=== PATIENT | female | born 1945 | race Two or more races ===

== ENCOUNTER 2018-07-06 09:05 | Inpatient (IN) ==
[2018-07-06 10:11] LABS: Basophils # 0.1 10*3/uL (0.0-0.2); Basophils % 0.2 % (0.0-0.8); Hematocrit 37.4 VOL% (35.7-47.0); Hemoglobin 11.8 GM/DL (12.0-16.0); Immature Granulocytes Absolute 0.27 #; Lymphocytes # 1.2 10*3/uL (1.4-4.0); Lymphocytes % 4.5 % (21.3-54.2); Mean Corpuscular HGB Conc 31.6 GM/DL (32-36); Mean Corpuscular Hemoglobin 29 PG (27-34); Mean Corpuscular Volume 91.9 FL (87-102); Mean Platelet Volume 11.5 FL (9.6-12.0); Monocytes # 1.6 10*3/uL (0.11-0.8); Monocytes % 5.8 % (1.7-12.7); Neutrophils # 23.6 10*3/uL (1.4-7.4); Neutrophils % 88.5 % (38.7-73.9); Platelet Count 209 T/CUMM (130-400); Red Blood Count 4.07 MC/CUMM (3.8-5.5); Red Cell Distribution Width 13.9 % (9.3-17.3); White Blood Count 26.7 T/CUMM (4-12)
[2018-07-06 10:31] LABS: Band Neutrophils 3 % (0-10); Hypochromasia 1+; Lymphocytes 5 % (20-55); Platelet Estimate Adequate; Segmented Neutrophils 86 % (50-85); Total Cells Counted 100
[2018-07-06] MEDS ORDERED: LEVOFLOXACIN INJ 500 MG in PREMIX 1 EACH IV STA (10:36)
[2018-07-06] MEDS ORDERED: ALBUTEROL 2.5 MG/3 ML NEB RESP TX PRN (10:45)
[2018-07-06] MEDS ORDERED: diphenhydrAMINE CAP 25 MG CAPSULE PO PRN (10:48)
[2018-07-06] MEDS ORDERED: traZODone 50 MG TABLET PO PRN (10:48)
[2018-07-06] MEDS ORDERED: ACETAMINOPHEN 325 MG TABLET PO PRN (10:48)
[2018-07-06] MEDS ORDERED: ZALEPLON 5 MG CAPSULE PO PRN (10:48)
[2018-07-06] MEDS ORDERED: LACTULOSE 20 GM/30 ML UDCUP PO PRN (10:48)
[2018-07-06] MEDS ORDERED: DEXTROSE 50% 25 GM/50 ML VIAL IV PRN (10:48)
[2018-07-06] MEDS ORDERED: MORPHINE 4 MG/1 ML VIAL IV PRN (10:48)
[2018-07-06] MEDS ORDERED: GLUCAGON 1 MG VIAL IM PRN (10:48)
[2018-07-06] MEDS ORDERED: ONDANSETRON 4 MG/2 ML VIAL IV PRN (10:48)
[2018-07-06] MEDS ORDERED: PROMETHAZINE 25 MG/1 ML VIAL IM PRN (10:48)
[2018-07-06] MEDS ORDERED: busPIRone 5 MG TABLET PO PRN (10:53)
[2018-07-06] MEDS ORDERED: cefTRIAXone 1,000 MG in SYRINGE 1 EACH IV SCH (11:00)
[2018-07-06 11:01] LABS: Albumin 3.4 G/DL (3.4-5.0); Bilirubin,Total 0.5 MG/DL (0.2-1.0); Calcium 9.5 MG/DL (8.5-10.1); Osmolality,Calculated 276.1 MOS/KG (273-304); Potassium 4.4 MMOL/L (3.5-5.1)
[2018-07-06 11:31] LABS: Risk Ratio 2.83; VLDL CHOLESTEROL 20.4 MG/DL
[2018-07-06] MEDS: INSULIN LISPRO 100 UNIT/ML SUBCUT SCH ×3 (12:27→22:40)
[2018-07-06] MEDS: HEPARIN 5,000 UNIT/1 ML VIAL SUBCUT SCH ×2 (12:29→22:30)
[2018-07-06] MEDS: methylPREDNISolone SOD SUC 40 MG/1 ML VIAL IV SCH ×3 (12:30→23:06)
[2018-07-06] MEDS: ALBUTEROL/IPRATROPIUM 3 ML NEB RESP TX SCH ×2 (14:44→20:08)
[2018-07-06] MEDS: cefTRIAXone 2,000 MG in SODIUM CHLORIDE 0.9% 100 ML IV SCH (14:54)
[2018-07-06] MEDS ORDERED: GABAPENTIN 600 MG TABLET PO SCH (15:00)
[2018-07-06] MEDS ORDERED: SODIUM CHLORIDE 0.9% 1,000 ML IV SCH (16:00)
[2018-07-06 17:41] LABS: Troponin I < 0.015 NG/ML (0.00-0.045)
[2018-07-06 19:22] LABS: Apearance,Urine CLEAR (Clear); Bilirubin,Urine Negative (Negative); Blood, Urine Negative (Negative); Glucose,Urine (UA) Negative (Negative); Ketones,Urine Negative (Negative); Mucus,Urine Occasional /LPF (Occasional); Nitrite,Urine Negative (Negative); Protein,Urine Negative; RBC,Urine 2 /HPF (0-4); Squamous Epithelial Cell,Urine Occasional /HPF (0-10); Urine Color Yellow (Yellow); Urine Specific Gravity 1.012 (1.001-1.035); Urine Urobilinogen < 2.0 EU/DL (0.2-1.0); WBC,Urine 5 /HPF (0-6)
[2018-07-06 20:14] LABS: Troponin I < 0.015 NG/ML (0.00-0.045)
[2018-07-06] MEDS: guaiFENesin/DM ER 600-30 MG TABLET PO SCH (20:38)
[2018-07-06 22:37] LABS: Troponin I < 0.015 NG/ML (0.00-0.045)
[2018-07-07] MEDS: ALBUTEROL/IPRATROPIUM 3 ML NEB RESP TX SCH ×4 (01:10→19:32)
[2018-07-07] MEDS: HEPARIN 5,000 UNIT/1 ML VIAL SUBCUT SCH ×3 (05:22→20:54)
[2018-07-07] MEDS: methylPREDNISolone SOD SUC 40 MG/1 ML VIAL IV SCH ×4 (05:22→22:38)
[2018-07-07 06:08] LABS: Basophils # 0.1 10*3/uL (0.0-0.2); Basophils % 0.2 % (0.0-0.8); Hematocrit 34.4 VOL% (35.7-47.0); Hemoglobin 10.8 GM/DL (12.0-16.0); Immature Granulocytes % 1.2 %; Immature Granulocytes Absolute 0.33 #; Lymphocytes # 0.9 10*3/uL (1.4-4.0); Lymphocytes % 3.5 % (21.3-54.2); Mean Corpuscular HGB Conc 31.4 GM/DL (32-36); Mean Corpuscular Hemoglobin 28 PG (27-34); Mean Corpuscular Volume 90.3 FL (87-102); Mean Platelet Volume 11.9 FL (9.6-12.0); Monocytes # 0.6 10*3/uL (0.11-0.8); Monocytes % 2.2 % (1.7-12.7); Neutrophils # 25.3 10*3/uL (1.4-7.4); Neutrophils % 92.9 % (38.7-73.9); Platelet Count 187 T/CUMM (130-400); Red Blood Count 3.81 MC/CUMM (3.8-5.5); Red Cell Distribution Width 13.4 % (9.3-17.3); White Blood Count 27.2 T/CUMM (4-12)
[2018-07-07 06:37] LABS: Hypochromasia 1+; Lymphocytes 4 % (20-55); Ovalocytes Slight; Platelet Estimate Adequate; Segmented Neutrophils 95 % (50-85); Total Cells Counted 100
[2018-07-07 06:42] LABS: Bilirubin,Total 0.6 MG/DL (0.2-1.0); Calcium 8.9 MG/DL (8.5-10.1); Osmolality,Calculated 287.7 MOS/KG (273-304); Potassium 3.7 MMOL/L (3.5-5.1); Total Protein 7.4 G/DL (6.4-8.3)
[2018-07-07] MEDS: ASPIRIN EC 81 MG TABLET PO SCH (08:32)
[2018-07-07] MEDS: guaiFENesin/DM ER 600-30 MG TABLET PO SCH ×2 (08:32→20:54)
[2018-07-07] MEDS: METOPROLOL SUCCINATE XL 100 MG TABLET PO SCH (08:32)
[2018-07-07] MEDS: sitaGLIPtin 25 MG TABLET PO SCH (08:32)
[2018-07-07] MEDS: PANTOPRAZOLE 40 MG TABLET PO SCH (08:32)
[2018-07-07] MEDS: CITALOPRAM 20 MG TABLET PO SCH (08:33)
[2018-07-07] MEDS: INSULIN LISPRO 100 UNIT/ML SUBCUT SCH ×4 (08:42→20:54)
[2018-07-07] MEDS ORDERED: POTASSIUM CHLORIDE 10 MEQ TABLET PO SCH (09:00)
[2018-07-07] MEDS ORDERED: amLODIPine 10 MG TABLET PO SCH (09:00)
[2018-07-07] MEDS ORDERED: EXEMESTANE 25 MG TABLET PO SCH (09:00)
[2018-07-07] MEDS ORDERED: POTASSIUM CHLORIDE 20 MEQ TABLET PO ONE (11:54)
[2018-07-07] MEDS: POTASSIUM CHLORIDE 20 MEQ TABLET PO SCH (12:53)
[2018-07-07] MEDS: cefTRIAXone 2,000 MG in SODIUM CHLORIDE 0.9% 100 ML IV SCH (13:31)
[2018-07-07] MEDS ORDERED: MAGNESIUM HYDROXIDE SUSP 30 ML UDCUP PO ONE (14:04)
[2018-07-07] MEDS ORDERED: BISACODYL 5 MG TABLET PO ONE (14:05)
[2018-07-07] MEDS ORDERED: MAGNESIUM HYDROXIDE SUSP 30 ML UDCUP PO PRN (14:05)
[2018-07-07] MEDS: SIMVASTATIN 20 MG TABLET PO SCH (20:53)
[2018-07-08] MEDS: ALBUTEROL/IPRATROPIUM 3 ML NEB RESP TX SCH ×4 (00:52→21:16)
[2018-07-08] MEDS: methylPREDNISolone SOD SUC 40 MG/1 ML VIAL IV SCH ×3 (05:19→16:52)
[2018-07-08] MEDS: HEPARIN 5,000 UNIT/1 ML VIAL SUBCUT SCH ×3 (05:19→21:32)
[2018-07-08 05:55] LABS: Basophils # 0.1 10*3/uL (0.0-0.2); Basophils % 0.2 % (0.0-0.8); Hemoglobin 11.4 GM/DL (12.0-16.0); Immature Granulocytes % 2.5 %; Immature Granulocytes Absolute 0.78 #; Lymphocytes # 0.7 10*3/uL (1.4-4.0); Lymphocytes % 2.2 % (21.3-54.2); Mean Corpuscular HGB Conc 31.7 GM/DL (32-36); Mean Corpuscular Hemoglobin 28 PG (27-34); Mean Corpuscular Volume 89.8 FL (87-102); Mean Platelet Volume 11.6 FL (9.6-12.0); Monocytes # 0.7 10*3/uL (0.11-0.8); Monocytes % 2.1 % (1.7-12.7); Neutrophils # 29.5 10*3/uL (1.4-7.4); Platelet Count 212 T/CUMM (130-400); Red Blood Count 4.01 MC/CUMM (3.8-5.5); Red Cell Distribution Width 13.6 % (9.3-17.3); White Blood Count 31.7 T/CUMM (4-12)
[2018-07-08 06:13] LABS: Albumin 2.9 G/DL (3.4-5.0); Bilirubin,Total 0.4 MG/DL (0.2-1.0); Calcium 9.3 MG/DL (8.5-10.1); Osmolality,Calculated 292.5 MOS/KG (273-304); Potassium 4.7 MMOL/L (3.5-5.1); Total Protein 7.5 G/DL (6.4-8.3)
[2018-07-08 06:33] LABS: Band Neutrophils 1 % (0-10); Hypochromasia 1+; Lymphocytes 1 % (20-55); Microcytosis Slight; Segmented Neutrophils 97 % (50-85); Total Cells Counted 100
[2018-07-08 06:34] LABS: Platelet Estimate Normal
[2018-07-08] MEDS: PANTOPRAZOLE 40 MG TABLET PO SCH (09:37)
[2018-07-08] MEDS: sitaGLIPtin 25 MG TABLET PO SCH (09:37)
[2018-07-08] MEDS: CITALOPRAM 20 MG TABLET PO SCH (09:37)
[2018-07-08] MEDS: POTASSIUM CHLORIDE 20 MEQ TABLET PO SCH (09:37)
[2018-07-08] MEDS: ASPIRIN EC 81 MG TABLET PO SCH (09:37)
[2018-07-08] MEDS: guaiFENesin/DM ER 600-30 MG TABLET PO SCH ×2 (09:37→21:32)
[2018-07-08] MEDS: METOPROLOL SUCCINATE XL 100 MG TABLET PO SCH (09:37)
[2018-07-08] MEDS ORDERED: LEVOFLOXACIN INJ 500 MG in PREMIX 1 EACH IV SCH (11:00)
[2018-07-08] MEDS: INSULIN LISPRO 100 UNIT/ML SUBCUT SCH ×4 (11:35→21:56)
[2018-07-08] MEDS: cefTRIAXone 2,000 MG in SODIUM CHLORIDE 0.9% 100 ML IV SCH (16:51)
[2018-07-08] MEDS: SIMVASTATIN 20 MG TABLET PO SCH (21:32)
[2018-07-09] MEDS: methylPREDNISolone SOD SUC 40 MG/1 ML VIAL IV SCH ×3 (00:18→12:50)
[2018-07-09] MEDS: ALBUTEROL/IPRATROPIUM 3 ML NEB RESP TX SCH ×3 (01:09→13:48)
[2018-07-09] MEDS: HEPARIN 5,000 UNIT/1 ML VIAL SUBCUT SCH ×2 (03:25→12:50)
[2018-07-09] MEDS: INSULIN LISPRO 100 UNIT/ML SUBCUT SCH ×2 (09:50→12:51)
[2018-07-09] MEDS: ASPIRIN EC 81 MG TABLET PO SCH (09:51)
[2018-07-09] MEDS: PANTOPRAZOLE 40 MG TABLET PO SCH (09:51)
[2018-07-09] MEDS: POTASSIUM CHLORIDE 20 MEQ TABLET PO SCH (09:51)
[2018-07-09] MEDS: CITALOPRAM 20 MG TABLET PO SCH (09:51)
[2018-07-09] MEDS: sitaGLIPtin 25 MG TABLET PO SCH (09:51)
[2018-07-09] MEDS: guaiFENesin/DM ER 600-30 MG TABLET PO SCH (09:51)
[2018-07-09] MEDS: METOPROLOL SUCCINATE XL 100 MG TABLET PO SCH (09:51)
[2018-07-09 12:07] VITALS: BP 151/78
[2018-07-09] MEDS: cefTRIAXone 2,000 MG in SODIUM CHLORIDE 0.9% 100 ML IV SCH (15:14)
== END 2018-07-09 15:27 | disposition home health service (06) | DRG 871 ==
LOC: EDUNIT# → EDBD → N.ED 09:05 → N.EDINP 10:34 → N.5E 11:57
PROVIDERS: ADMIT Hospitalist; ATTEND Hospitalist

== ENCOUNTER 2018-09-14 09:37 | Inpatient (IN) ==
[2018-09-14 10:43] LABS: Basophils % 0.4 % (0.0-0.8); Eosinophils % 0.4 % (0.00-10.9); Hematocrit 40.9 VOL% (35.7-47.0); Hemoglobin 12.9 GM/DL (12.0-16.0); Immature Granulocytes % 0.8 %; Immature Granulocytes Absolute 0.09 #; Lymphocytes # 0.9 10*3/uL (1.4-4.0); Lymphocytes % 8.2 % (21.3-54.2); Mean Corpuscular HGB Conc 31.5 GM/DL (32-36); Mean Corpuscular Volume 88.3 FL (87-102); Mean Platelet Volume 10.9 FL (9.6-12.0); Monocytes % 4.4 % (1.7-12.7); Neutrophils % 85.8 % (38.7-73.9); Platelet Count 230 T/CUMM (130-400); Red Blood Count 4.63 MC/CUMM (3.8-5.5); Red Cell Distribution Width 14.5 % (9.3-17.3); White Blood Count 10.7 T/CUMM (4-12)
[2018-09-14 10:51] LABS: INR 1.2; PT Patient Result 13.5 SECS
[2018-09-14] MEDS ORDERED: ASPIRIN 325 MG TABLET PO STA (10:52)
[2018-09-14] MEDS ORDERED: ENOXAPARIN 80 MG/0.8 ML SYRINGE SUBCUT STA (10:52)
[2018-09-14 11:02] LABS: Partial Thromboplastin Time 58.2 SECS (0-40)
[2018-09-14 11:04] LABS: Albumin 3.9 G/DL (3.4-5.0); Bilirubin,Total 0.6 MG/DL (0.2-1.0); Calcium 9.8 MG/DL (8.5-10.1); Osmolality,Calculated 278.7 MOS/KG (273-304); Total Protein 7.9 G/DL (6.4-8.3)
[2018-09-14] MEDS ORDERED: LEVOFLOXACIN INJ 500 MG in PREMIX 1 EACH IV STA (11:18)
[2018-09-14] MEDS ORDERED: DOCUSATE SODIUM 100 MG CAPSULE PO PRN (13:36)
[2018-09-14] MEDS ORDERED: ACETAMINOPHEN 325 MG TABLET PO PRN (13:36)
[2018-09-14] MEDS ORDERED: DEXTROSE 50% 25 GM/50 ML SYRINGE IV PRN (13:51)
[2018-09-14] MEDS ORDERED: GLUCAGON 1 MG VIAL IM PRN (13:51)
[2018-09-14] MEDS ORDERED: ASPIRIN EC 81 MG TABLET PO SCH (14:00)
[2018-09-14] MEDS ORDERED: ENOXAPARIN 40 MG/0.4 ML SYRINGE SUBCUT SCH (14:00)
[2018-09-14] MEDS: FUROSEMIDE 40 MG TABLET PO SCH (16:35)
[2018-09-14] MEDS: CITALOPRAM 20 MG TABLET PO SCH (16:35)
[2018-09-14] MEDS: SPIRONOLACTONE 25 MG TABLET PO SCH (16:35)
[2018-09-14] MEDS: busPIRone 5 MG TABLET PO SCH ×2 (16:35→20:48)
[2018-09-14] MEDS: PANTOPRAZOLE 40 MG TABLET PO SCH (16:35)
[2018-09-14] MEDS: DILTIAZEM 60 MG TABLET PO SCH ×2 (16:36→20:48)
[2018-09-14] MEDS: LOSARTAN 50 MG TABLET PO SCH (16:36)
[2018-09-14] MEDS: INSULIN LISPRO 100 UNIT/ML SUBCUT SCH ×2 (18:27→22:03)
[2018-09-14] MEDS: SIMVASTATIN 20 MG TABLET PO SCH (20:47)
[2018-09-14] MEDS: ZALEPLON 5 MG CAPSULE PO PRN (20:51)
[2018-09-15 04:46] LABS: Basophils % 0.3 % (0.0-0.8); Eosinophils # 0.1 10*3/uL (0.0-0.87); Eosinophils % 1.3 % (0.00-10.9); Hematocrit 38.9 VOL% (35.7-47.0); Hemoglobin 12.2 GM/DL (12.0-16.0); Immature Granulocytes Absolute 0.09 #; Lymphocytes # 1.2 10*3/uL (1.4-4.0); Lymphocytes % 13.8 % (21.3-54.2); Mean Corpuscular HGB Conc 31.4 GM/DL (32-36); Mean Corpuscular Volume 88.6 FL (87-102); Mean Platelet Volume 11.2 FL (9.6-12.0); Monocytes % 9.9 % (1.7-12.7); Neutrophils % 73.7 % (38.7-73.9); Platelet Count 222 T/CUMM (130-400); Red Blood Count 4.39 MC/CUMM (3.8-5.5); Red Cell Distribution Width 14.6 % (9.3-17.3); White Blood Count 8.7 T/CUMM (4-12)
[2018-09-15 05:05] LABS: Calcium 9.2 MG/DL (8.5-10.1); Osmolality,Calculated 281.7 MOS/KG (273-304)
[2018-09-15] MEDS: LOSARTAN 50 MG TABLET PO SCH (08:12)
[2018-09-15] MEDS: busPIRone 5 MG TABLET PO SCH ×2 (08:12→20:55)
[2018-09-15] MEDS: CITALOPRAM 20 MG TABLET PO SCH (08:12)
[2018-09-15] MEDS: SPIRONOLACTONE 25 MG TABLET PO SCH (08:12)
[2018-09-15] MEDS: DILTIAZEM 60 MG TABLET PO SCH ×3 (08:12→20:55)
[2018-09-15] MEDS: ASPIRIN EC 81 MG TABLET PO SCH (08:12)
[2018-09-15] MEDS: FUROSEMIDE 40 MG TABLET PO SCH (08:12)
[2018-09-15] MEDS: PANTOPRAZOLE 40 MG TABLET PO SCH (08:13)
[2018-09-15] MEDS: DABIGATRAN 75 MG CAPSULE PO SCH ×2 (08:14→20:53)
[2018-09-15] MEDS: INSULIN GLARGINE 100 UNIT/ML SUBCUT SCH (08:14)
[2018-09-15] MEDS: INSULIN LISPRO 100 UNIT/ML SUBCUT SCH ×4 (10:31→21:38)
[2018-09-15] MEDS: LEVOFLOXACIN INJ 250 MG in PREMIX 1 EACH IV SCH (11:37)
[2018-09-15] MEDS ORDERED: NITROGLYCERIN SL 0.4 MG TABLET SL ONE (13:01)
[2018-09-15] MEDS ORDERED: ASPIRIN CHEW 81 MG TABLET PO ONE ×2 (13:01→13:04)
[2018-09-15] MEDS ORDERED: NITROGLYCERIN SL 0.4 MG TABLET SL PRN (13:04)
[2018-09-15] MEDS ORDERED: MORPHINE 4 MG/1 ML VIAL IM PRN (13:26)
[2018-09-15 13:38] LABS: Basophils % 0.4 % (0.0-0.8); Eosinophils # 0.1 10*3/uL (0.0-0.87); Eosinophils % 0.9 % (0.00-10.9); Hematocrit 43.5 VOL% (35.7-47.0); Hemoglobin 13.3 GM/DL (12.0-16.0); Immature Granulocytes % 0.9 %; Immature Granulocytes Absolute 0.07 #; Lymphocytes # 1.1 10*3/uL (1.4-4.0); Lymphocytes % 13.3 % (21.3-54.2); Mean Corpuscular HGB Conc 30.6 GM/DL (32-36); Mean Platelet Volume 11.7 FL (9.6-12.0); Monocytes % 6.8 % (1.7-12.7); Neutrophils % 77.7 % (38.7-73.9); Platelet Count 212 T/CUMM (130-400); Red Blood Count 4.78 MC/CUMM (3.8-5.5); Red Cell Distribution Width 14.6 % (9.3-17.3); White Blood Count 8.2 T/CUMM (4-12)
[2018-09-15] MEDS ORDERED: ENOXAPARIN 40 MG/0.4 ML SYRINGE SUBCUT SCH (14:00)
[2018-09-15 14:06] LABS: Albumin 4.2 G/DL (3.4-5.0); Bilirubin,Total 0.5 MG/DL (0.2-1.0); Calcium 9.5 MG/DL (8.5-10.1); Total Protein 7.7 G/DL (6.4-8.3)
[2018-09-15] MEDS: BISACODYL 5 MG TABLET PO PRN (14:43)
[2018-09-15] MEDS: ONDANSETRON 4 MG/2 ML VIAL IV PRN ×2 (16:59→22:48)
[2018-09-15] MEDS: SIMVASTATIN 20 MG TABLET PO SCH (21:33)
[2018-09-16] MEDS: BISACODYL 5 MG TABLET PO PRN (06:55)
[2018-09-16] MEDS: INSULIN LISPRO 100 UNIT/ML SUBCUT SCH ×4 (08:28→20:58)
[2018-09-16] MEDS: DILTIAZEM 60 MG TABLET PO SCH ×3 (09:33→20:57)
[2018-09-16] MEDS: CITALOPRAM 20 MG TABLET PO SCH (09:33)
[2018-09-16] MEDS: SPIRONOLACTONE 25 MG TABLET PO SCH (09:34)
[2018-09-16] MEDS: DABIGATRAN 75 MG CAPSULE PO SCH ×2 (09:34→20:59)
[2018-09-16] MEDS: busPIRone 5 MG TABLET PO SCH ×2 (09:34→20:55)
[2018-09-16] MEDS: ASPIRIN EC 81 MG TABLET PO SCH (09:34)
[2018-09-16] MEDS: LOSARTAN 50 MG TABLET PO SCH (09:34)
[2018-09-16] MEDS: FUROSEMIDE 40 MG TABLET PO SCH (09:34)
[2018-09-16] MEDS: PANTOPRAZOLE 40 MG TABLET PO SCH (09:34)
[2018-09-16] MEDS: INSULIN GLARGINE 100 UNIT/ML SUBCUT SCH (09:39)
[2018-09-16] MEDS ORDERED: MAGNESIUM HYDROXIDE SUSP 30 ML UDCUP PO PRN (10:54)
[2018-09-16] MEDS: LEVOFLOXACIN INJ 250 MG in PREMIX 1 EACH IV SCH (12:21)
[2018-09-16] MEDS ORDERED: PHENOL 1.4% THROAT SPRAY 177 ML BOTTLE PO PRN (16:26)
[2018-09-16] MEDS: SIMVASTATIN 20 MG TABLET PO SCH (20:55)
[2018-09-16] MEDS: ZALEPLON 5 MG CAPSULE PO PRN (20:56)
[2018-09-17 05:50] LABS: Basophils % 0.4 % (0.0-0.8); Eosinophils # 0.2 10*3/uL (0.0-0.87); Eosinophils % 1.7 % (0.00-10.9); Hematocrit 40.3 VOL% (35.7-47.0); Hemoglobin 12.5 GM/DL (12.0-16.0); Immature Granulocytes % 1.1 %; Immature Granulocytes Absolute 0.11 #; Lymphocytes # 0.9 10*3/uL (1.4-4.0); Lymphocytes % 9.1 % (21.3-54.2); Mean Corpuscular Volume 89.6 FL (87-102); Mean Platelet Volume 11.4 FL (9.6-12.0); Monocytes % 7.7 % (1.7-12.7); Platelet Count 203 T/CUMM (130-400); Red Cell Distribution Width 14.7 % (9.3-17.3)
[2018-09-17 06:34] LABS: Calcium 9.2 MG/DL (8.5-10.1)
[2018-09-17] MEDS: INSULIN LISPRO 100 UNIT/ML SUBCUT SCH ×4 (07:57→20:51)
[2018-09-17] MEDS: DILTIAZEM 60 MG TABLET PO SCH ×3 (09:00→20:49)
[2018-09-17] MEDS: SODIUM CHLORIDE 0.9% 1,000 ML IV SCH ×2 (09:00→17:08)
[2018-09-17] MEDS: busPIRone 5 MG TABLET PO SCH ×2 (09:00→20:49)
[2018-09-17] MEDS: CITALOPRAM 20 MG TABLET PO SCH (09:01)
[2018-09-17] MEDS: LOSARTAN 50 MG TABLET PO SCH (09:01)
[2018-09-17] MEDS: PANTOPRAZOLE 40 MG TABLET PO SCH (09:01)
[2018-09-17] MEDS: ASPIRIN EC 81 MG TABLET PO SCH (09:02)
[2018-09-17] MEDS: DABIGATRAN 75 MG CAPSULE PO SCH ×2 (09:23→20:55)
[2018-09-17] MEDS: INSULIN GLARGINE 100 UNIT/ML SUBCUT SCH (09:23)
[2018-09-17 09:38] LABS: Apearance,Urine CLEAR (Clear); Bilirubin,Urine Negative (Negative); Blood, Urine Negative (Negative); Glucose,Urine (UA) Negative (Negative); Hyaline Casts,Urine 5 /LPF (0-3); Ketones,Urine Negative (Negative); Mucus,Urine Occasional /LPF (Occasional); Nitrite,Urine Negative (Negative); Protein,Urine Negative; RBC,Urine 1 /HPF (0-4); Squamous Epithelial Cell,Urine Occasional /HPF (0-10); Urine Color Yellow (Yellow); Urine Specific Gravity 1.019 (1.001-1.035); Urine Urobilinogen < 2.0 EU/DL (0.2-1.0); WBC,Urine 8 /HPF (0-6)
[2018-09-17 10:05] LABS: Protein/Creatinine Ratio,Urine 0.1 RATIO
[2018-09-17] MEDS: LEVOFLOXACIN INJ 250 MG in PREMIX 1 EACH IV SCH (11:16)
[2018-09-17] MEDS: ZALEPLON 5 MG CAPSULE PO PRN (20:49)
[2018-09-17] MEDS: SIMVASTATIN 20 MG TABLET PO SCH (20:50)
[2018-09-18] MEDS: SODIUM CHLORIDE 0.9% 1,000 ML IV SCH ×2 (00:52→08:51)
[2018-09-18 05:23] LABS: Basophils % 0.5 % (0.0-0.8); Eosinophils # 0.2 10*3/uL (0.0-0.87); Eosinophils % 2.6 % (0.00-10.9); Hematocrit 34.6 VOL% (35.7-47.0); Hemoglobin 10.7 GM/DL (12.0-16.0); Immature Granulocytes % 1.1 %; Immature Granulocytes Absolute 0.07 #; Lymphocytes # 0.9 10*3/uL (1.4-4.0); Lymphocytes % 14.7 % (21.3-54.2); Mean Corpuscular HGB Conc 30.9 GM/DL (32-36); Mean Corpuscular Volume 90.6 FL (87-102); Mean Platelet Volume 12.1 FL (9.6-12.0); Monocytes % 9.8 % (1.7-12.7); Neutrophils % 71.3 % (38.7-73.9); Platelet Count 171 T/CUMM (130-400); Red Blood Count 3.82 MC/CUMM (3.8-5.5); Red Cell Distribution Width 14.8 % (9.3-17.3); White Blood Count 6.2 T/CUMM (4-12)
[2018-09-18 05:43] LABS: Albumin 3.3 G/DL (3.4-5.0); Calcium 8.2 MG/DL (8.5-10.1); Osmolality,Calculated 287.3 MOS/KG (273-304)
[2018-09-18] MEDS: INSULIN LISPRO 100 UNIT/ML SUBCUT SCH ×2 (07:23→12:13)
[2018-09-18] MEDS: DILTIAZEM 60 MG TABLET PO SCH (08:47)
[2018-09-18] MEDS: busPIRone 5 MG TABLET PO SCH (08:47)
[2018-09-18] MEDS: CITALOPRAM 20 MG TABLET PO SCH (08:47)
[2018-09-18] MEDS: PANTOPRAZOLE 40 MG TABLET PO SCH (08:49)
[2018-09-18] MEDS: INSULIN GLARGINE 100 UNIT/ML SUBCUT SCH (08:49)
[2018-09-18] MEDS: ASPIRIN EC 81 MG TABLET PO SCH (08:49)
[2018-09-18] MEDS: DABIGATRAN 75 MG CAPSULE PO SCH (08:49)
[2018-09-18] MEDS: LEVOFLOXACIN INJ 250 MG in PREMIX 1 EACH IV SCH (08:50)
[2018-09-18 11:51] VITALS: BP 112/61
[2018-09-19] MEDS ORDERED: LEVOFLOXACIN 250 MG TABLET PO SCH (09:00)
== END 2018-09-18 14:40 | disposition home or self-care (01) | DRG 194 ==
LOC: EDUNIT# → N.ED 09:37 → N.EDINP 13:36 → N.2E 16:00
PROVIDERS: ADMIT Hospitalist; ATTEND Hospitalist

== ENCOUNTER 2021-08-18 21:08 | Observation (INO) ==
[2021-08-18 22:00] LABS: Bilirubin,Urine Negative (Negative); Blood, Urine Trace mg/dL (Negative); Glucose,Urine (UA) Negative (Negative); Ketones,Urine Negative (Negative); Nitrite,Urine Negative (Negative); Protein,Urine Negative (Negative); RBC,Urine 1 /HPF (0-4); Squamous Epithelial Cell,Urine Occasional /HPF (0-10); Urine Appearance Clear (Clear); Urine Color Yellow (Yellow); Urine Specific Gravity 1.015 (1.001-1.035); Urine Urobilinogen 0.2 eU/dL (<2.0); Urine pH 6.5 (4.5-8.0)
[2021-08-18 22:04] LABS: Basophils % 0.6 % (0.0-0.8); Eosinophils % 0.6 % (0.00-10.9); Hemoglobin 11.7 GM/DL (12.0-16.0); Lymphocytes # 0.5 10*3/uL (1.4-4.0); Mean Corpuscular HGB Conc 30.8 GM/DL (32-36); Mean Corpuscular Volume 93.8 FL (87-102); Mean Platelet Volume 11.9 FL (9.6-12.0); Monocytes % 8.1 % (1.7-12.7); Neutrophils % 64.7 % (38.7-73.9); Platelet Count 139 T/CUMM (130-400); Red Blood Count 4.05 MC/CUMM (3.8-5.5); Red Cell Distribution Width 21.7 % (9.3-17.3); White Blood Count 1.7 T/CUMM (4-12)
[2021-08-18 22:16] LABS: Albumin 3.8 G/DL (3.4-5.0); Bilirubin,Total 0.7 MG/DL (0.20-1.00); Osmolality,Calculated 279.4 MOS/KG (273-304); Potassium 4.1 MMOL/L (3.5-5.1); Total Protein 8.5 G/DL (6.4-8.2)
[2021-08-18 22:25] LABS: INR 1.1; PT Patient Result 11.9 SECS (10.5-12.0); Partial Thromboplastin Time 20.9 SECS (23.8-32.1)
[2021-08-18 22:38] LABS: Eosinophils 3 % (0-10); Lymphocytes 22 % (20-55); Platelet Estimate Adequate; Segmented Neutrophils 69 % (50-85); Total Cells Counted 100
[2021-08-19] MEDS ORDERED: LABETALOL 100 MG/20 ML VIAL IV STA (00:02)
[2021-08-19] MEDS ORDERED: LABETALOL 20 MG/4 ML SYRINGE IV STA (00:09)
[2021-08-19] MEDS ORDERED: ONDANSETRON 4 MG/2 ML VIAL IV PRN (01:47)
[2021-08-19] MEDS ORDERED: GLUCAGON 1 MG VIAL IM PRN (01:52)
[2021-08-19] MEDS ORDERED: DEXTROSE 10% 250 ML BAG IV PRN (01:54)
[2021-08-19 07:06] LABS: Basophils % 0.7 % (0.0-0.8); Eosinophils % 0.7 % (0.00-10.9); Hematocrit 33.7 VOL% (35.7-47.0); Hemoglobin 10.6 GM/DL (12.0-16.0); Lymphocytes # 0.4 10*3/uL (1.4-4.0); Lymphocytes % 29.9 % (21.3-54.2); Mean Corpuscular HGB Conc 31.5 GM/DL (32-36); Mean Corpuscular Volume 93.4 FL (87-102); Mean Platelet Volume 11.3 FL (9.6-12.0); Monocytes % 11.1 % (1.7-12.7); Neutrophils % 57.6 % (38.7-73.9); Platelet Count 129 T/CUMM (130-400); Red Blood Count 3.61 MC/CUMM (3.8-5.5); Red Cell Distribution Width 21.3 % (9.3-17.3); White Blood Count 1.4 T/CUMM (4-12)
[2021-08-19 07:25] LABS: Albumin 3.2 G/DL (3.4-5.0); Bilirubin,Total 0.6 MG/DL (0.20-1.00); Calcium 8.8 MG/DL (8.5-10.1); Eosinophils 2 % (0-10); Lymphocytes 26 % (20-55); Osmolality,Calculated 278.4 MOS/KG (273-304); Platelet Estimate Adequate; Potassium 3.2 MMOL/L (3.5-5.1); Segmented Neutrophils 61 % (50-85); Total Cells Counted 100; Total Protein 7.1 G/DL (6.4-8.2)
[2021-08-19 07:47] LABS: Albumin 3.2 G/DL (3.4-5.0); Total Protein 7.2 G/DL (6.4-8.2)
[2021-08-19] MEDS: PANTOPRAZOLE 40 MG TABLET PO SCH (08:49)
[2021-08-19] MEDS: INSULIN REGULAR 100 UNIT/ML SUBCUT SCH ×4 (09:05→22:35)
[2021-08-19 17:13] LABS: Glucose,Pleural Fluid 127 MG/DL; LDH,Body Fluid 73 U/L; Total Protein,Body Fluid 3.7 G/DL
[2021-08-19 18:13] LABS: Lymphocytes,Pleural Fluid 89 %; Monocytes,Pleural Fluid 8 %; Neutrophils,Pleural Fluid 3 %; RBC,Pleural Fluid 13980 T/CUMM
[2021-08-20 05:04] LABS: Basophils % 0.7 % (0.0-0.8); Eosinophils % 0.7 % (0.00-10.9); Hematocrit 35.8 VOL% (35.7-47.0); Hemoglobin 11.1 GM/DL (12.0-16.0); Immature Granulocytes % 0.7 %; Immature Granulocytes Absolute 0.01 #; Lymphocytes # 0.5 10*3/uL (1.4-4.0); Lymphocytes % 33.1 % (21.3-54.2); Mean Platelet Volume 11.4 FL (9.6-12.0); Monocytes % 17.6 % (1.7-12.7); Neutrophils % 47.2 % (38.7-73.9); Platelet Count 126 T/CUMM (130-400); Red Blood Count 3.77 MC/CUMM (3.8-5.5); Red Cell Distribution Width 21.5 % (9.3-17.3); White Blood Count 1.4 T/CUMM (4-12)
[2021-08-20 05:18] LABS: Calcium 8.6 MG/DL (8.5-10.1); Osmolality,Calculated 281.3 MOS/KG (273-304); Potassium 3.1 MMOL/L (3.5-5.1)
[2021-08-20 05:28] LABS: Eosinophils 3 % (0-10); Lymphocytes 34 % (20-55); Segmented Neutrophils 50 % (50-85); Total Cells Counted 100
[2021-08-20 05:29] LABS: Anisocytosis 1+; Atypical Lymphocytes Few; Hypochromia 1+; Microcytosis 1+; Ovalocytes Slight
[2021-08-20] MEDS ORDERED: MAGNESIUM SULF RIDER 2 GM/50 ML PREMIX IV PRN (07:01)
[2021-08-20] MEDS ORDERED: MAGNESIUM SULF RIDER 4 GM/100 ML PREMIX IV PRN (07:01)
[2021-08-20] MEDS: INSULIN REGULAR 100 UNIT/ML SUBCUT SCH ×2 (08:56→11:48)
[2021-08-20] MEDS: PANTOPRAZOLE 40 MG TABLET PO SCH (09:55)
[2021-08-20 11:02] VITALS: BP 150/88
== END 2021-08-20 12:36 | disposition home or self-care (01) ==
LOC: EDBD → EDUNIT# → N.EDINP 21:08 → N.TELES 21:08 → N.ED 21:08 → SUATTDRO 08-19 01:47 → N.EDINP 08-19 03:00
PROVIDERS: ADMIT Internal Medicine; ATTEND Internal Medicine